=== PATIENT | female | born 1980 | race Caucasian/White ===

== ENCOUNTER 2018-03-27 08:10 | Emergency (ER) | payer OTHER ==
[~2018-03-27] VITALS: Ht 165.1 cm; Wt 76.7 kg
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
[2018-03-27] MEDS ORDERED: IBUPROFEN 600 MG TABLET PO ONE ×2 (08:30→08:38)
[2018-03-27 09:20] VITALS: BP 125/72
--- NOTE | 2018-03-27 09:26 | NUR ---
For discharge- AFter care Instructions given-Verbalized understanding. Home ambulatory in stable condition
== END 2018-03-27 09:21 | disposition home or self-care (01) ==
LOC: ER 08:12
DX: M54.2 Cervicalgia (principal); M25.511 Pain in right shoulder; V49.49XA Driver injured in collision with other motor vehicles in traffic accident, initial encounter; Y93.89 Activity, other specified; Y92.411 Interstate highway as the place of occurrence of the external cause; Y99.8 Other external cause status
CPT/HCPCS: 84703; 99283; A4606; Z7610